=== PATIENT | female | born 1950 | race Two or more races ===

== ENCOUNTER 2018-10-12 15:26 | Inpatient (IN) | payer OTHER ==
[~2018-10-12] VITALS: Ht 157.5 cm; Wt 64.2 kg
[2018-10-12 15:48] VITALS: BP 153/74
[2018-10-12] MEDS ORDERED: DONE10TA8 PO (16:40)
[2018-10-12] MEDS ORDERED: RISP.5 PO (16:40)
[2018-10-12] MEDS ORDERED: MEMA10TA11 PO (16:41)
[2018-10-12] MEDS ORDERED: HYD50 PO (16:42)
[2018-10-12] MEDS ORDERED: CITA-106 PO (16:42)
[2018-10-12] MEDS ORDERED: ZOLPIDEM TARTRATE 10 MG TABLET PO PRN (16:45)
[2018-10-12 17:30] VITALS: BP 158/87
[2018-10-12] MEDS: RisperiDONE 0.5 MG TABLET PO SCH (17:49)
[2018-10-12 18:40] LABS: GLUCOMETER DEV NAME(LOC) BV2S.; GLUCOSE,POINT OF CARE 139 MG/DL (70-110)
[2018-10-12] MEDS ORDERED: GuaiFENesin/D-METHORPHAN [SUGAR-FREE] 200-20MG/10 ML SYRUP UDCUP PO PRN (18:45)
[2018-10-12] MEDS ORDERED: NICOTINE 14 MG/24 HOUR PATCH TD PRN (18:45)
[2018-10-12] MEDS ORDERED: ALBUTEROL SULFATE HFA 90 MCG/PUFF 8 GM INHALER IH PRN (18:45)
[2018-10-12] MEDS ORDERED: PETROLATUM,WHITE 28 GM JELLY TP PRN (18:45)
[2018-10-12] MEDS ORDERED: DOCUSATE SODIUM 100 MG CAPSULE PO PRN (18:45)
[2018-10-12] MEDS ORDERED: CloNIDine HCL 0.1 MG TABLET PO PRN (18:45)
[2018-10-12] MEDS ORDERED: IBUPROFEN 400 MG TABLET PO PRN (18:45)
[2018-10-12] MEDS ORDERED: MAG HYDROX/AL HYDROX/SIMETH ES 30 ML SUSPENSION UDCUP PO PRN (18:45)
[2018-10-12] MEDS ORDERED: MAGNESIUM HYDROXIDE SUSPENSION 30 ML UDCUP PO PRN (18:45)
[2018-10-12] MEDS ORDERED: LOPERAMIDE HCL 2 MG CAPSULE PO PRN (18:45)
[2018-10-12] MEDS ORDERED: ACETAMINOPHEN 325 MG TABLET PO PRN (18:45)
[2018-10-12] MEDS ORDERED: ONDANSETRON HCL 4 MG TABLET PO PRN (18:45)
[2018-10-12] MEDS: AmLODIPine BESYLATE 5 MG TABLET PO SCH (19:27)
[2018-10-12 20:43] VITALS: BP 142/72
[2018-10-12] MEDS ORDERED: DONEPEZIL HCL 10 MG TABLET PO SCH (21:00)
[2018-10-12] MEDS: MEMANTINE HCL 10 MG TABLET PO SCH (21:47)
[2018-10-12] MEDS: DONEPEZIL HCL 10 MG TABLET PO SCH (21:47)
[2018-10-12] MEDS ORDERED: PNEUMOCOCCAL VACCINE POLYVALENT 0.5 ML VIAL [PPSV23] IM ONE (23:30)
[2018-10-13 00:18] VITALS: BP 137/81
[2018-10-13] MEDS: CITALOPRAM HYDROBROMIDE 20 MG TABLET PO SCH (08:06)
[2018-10-13] MEDS: MEMANTINE HCL 10 MG TABLET PO SCH ×2 (08:06→16:24)
[2018-10-13] MEDS: AmLODIPine BESYLATE 5 MG TABLET PO SCH (08:06)
[2018-10-13 08:18] VITALS: BP 132/64
[2018-10-13 08:32] LABS: BASOPHILS % (AUTO) 0.9 % (0.0-2.0); EOSINOPHILS % (AUTO) 1.9 % (1.0-6.0); HEMATOCRIT 41.5 % (36-46); HEMOGLOBIN 13.7 g/dL (12.0-16.0); LYMPHOCYTES # (AUTO) 4.5 K/uL (1.0-4.8); MEAN CORPUSCULAR HEMOGLOBIN 31.7 pg (26.0-34.0); MEAN CORPUSCULAR HGB CONC 33.1 G/dL (31.0-37.0); MEAN CORPUSCULAR VOLUME 96 fL (80-100); MONOCYTES # (AUTO) 0.7 K/uL (0.1-1.0); MONOCYTES % (AUTO) 5.6 % (2.0-9.0); NEUTROPHILS # (AUTO) 7.3 K/uL (1.8-7.7); NEUTROPHILS % (AUTO) 56.6 % (40.0-70.0); PLATELET COUNT (AUTO) 313 K/uL (150-450); RED BLOOD CELL COUNT(AUTO) 4.32 MIL/uL (4.00-5.20); RED CELL DISTRIBUTION WIDTH 14.1 % (11.5-14.5)
[2018-10-13 08:53] LABS: HEMOGLOBIN A1C 5.5 % (4.5-6.2)
[2018-10-13] MEDS ORDERED: MEMANTINE HCL 10 MG TABLET PO SCH (09:00)
[2018-10-13 09:10] LABS: ALANINE AMINOTRANSFERASE 22 U/L (12-78); ALBUMIN 3.7 g/dL (3.4-5.0); ALKALINE PHOSPHATASE 112 U/L (46-116); ASPARTATE AMINOTRANSFERASE 20 U/L (15-37); BILIRUBIN,TOTAL 0.5 mg/dL (0.1-1.0); CALCIUM, TOTAL 8.7 mg/dL (8.8-10.5); CARBON DIOXIDE 27 mmol/L (22-29); CHLORIDE 103 mmol/L (98-107); CHOL/HDL RATIO 3.4 (3.9-5.7); CHOLESTEROL 220 mg/dL (131-200); FREE T4 (FREE THYROXINE) 0.96 ng/dL (0.76-1.46); GLOMERULAR FILTR. RATE CALC > 60 mL/min (>60); GLUCOSE,RANDOM 75 mg/dL (70-110); HDL CHOLESTEROL 64 mg/dL (40-60); LDL CHOL (CALC.) 144 mg/dL (0-130); TOTAL PROTEIN, SERUM 7.8 g/dL (6.4-8.2); TRIGLYCERIDES 59 mg/dL (15-150); UREA NITROGEN, BLOOD 10 mg/dL (7-18)
[2018-10-13 09:33] LABS: ANION GAP 11 mmol/L (8-16); SODIUM SERUM 141 mmol/L (136-145)
[2018-10-13 16:12] VITALS: BP 119/71
[2018-10-13] MEDS: RisperiDONE 0.5 MG TABLET PO SCH (16:24)
[2018-10-13] MEDS: DONEPEZIL HCL 10 MG TABLET PO SCH (20:11)
[2018-10-14 04:50] VITALS: BP 128/79
[2018-10-14] MEDS: CITALOPRAM HYDROBROMIDE 20 MG TABLET PO SCH (08:18)
[2018-10-14] MEDS: MEMANTINE HCL 10 MG TABLET PO SCH ×2 (08:18→16:07)
[2018-10-14] MEDS: AmLODIPine BESYLATE 5 MG TABLET PO SCH (08:18)
[2018-10-14 08:45] VITALS: BP 141/73
[2018-10-14] MEDS: RisperiDONE 0.5 MG TABLET PO SCH (16:07)
[2018-10-14 16:17] VITALS: BP 136/62
[2018-10-14] MEDS: DONEPEZIL HCL 10 MG TABLET PO SCH (20:19)
[2018-10-15 06:39] VITALS: BP_SYST 123
[2018-10-15 07:53] LABS: AMPHET/METH SCREEN,URINE NEGATIVE (NEGATIVE); BARBITURATE SCREEN, URINE NEGATIVE (NEGATIVE); BENZODIAZEPINES SCREEN,URINE NEGATIVE (NEGATIVE); CANNABINOID SCREEN,URINE NEGATIVE (NEGATIVE); COCAINE SCREEN,URINE NEGATIVE (NEGATIVE); METHADONE SCREEN, URINE NEGATIVE (NEGATIVE); OPIATE SCREEN,URINE NEGATIVE (NEGATIVE)
[2018-10-15 07:54] LABS: PHENCYCLIDINE SCREEN,URINE NEGATIVE (NEGATIVE)
[2018-10-15 08:17] LABS: APPEARANCE,URINE TURBID (CLEAR); BILIRUBIN,URINE NEGATIVE (NEGATIVE); GLUCOSE, URINE (UA) NEGATIVE (NEGATIVE); KETONES,URINE TRACE mg/dL (NEGATIVE); NITRATE,URINE NEGATIVE (NEGATIVE); PROTEIN,URINE NEGATIVE (NEGATIVE); UROBILINOGEN,URINE 0.2 mg/dL (<=1.0)
[2018-10-15 08:33] VITALS: BP 128/65
[2018-10-15] MEDS: MEMANTINE HCL 10 MG TABLET PO SCH ×2 (08:33→16:16)
[2018-10-15] MEDS: AmLODIPine BESYLATE 5 MG TABLET PO SCH (08:33)
[2018-10-15] MEDS: CITALOPRAM HYDROBROMIDE 20 MG TABLET PO SCH (08:33)
[2018-10-15 08:38] LABS: BACTERIA,URINE None Seen /HPF (None Seen); LEUKOCYTE ESTERASE ,URINE TRACE (NEGATIVE); OCCULT BLOOD,URINE TRACE (NEGATIVE); RBC,URINE 0-2 /HPF (0-2); SQUAMOUS EPITHELIAL CELL,UR Few /LPF (None Seen); WBC,URINE 0-2 /HPF (0-5)
[2018-10-15 08:39] LABS: AMORPHOUS SEDIMENT,UR Many /LPF (None Seen); CALCIUM OXALATE CRYSTALS,UR Moderate /LPF (None Seen)
[2018-10-15] MEDS: RisperiDONE 0.5 MG TABLET PO SCH (16:16)
[2018-10-15 16:21] VITALS: BP 139/63
[2018-10-15] MEDS: DONEPEZIL HCL 10 MG TABLET PO SCH (20:18)
[2018-10-16 05:45] VITALS: BP 138/77
[2018-10-16 08:05] LABS: BASOPHILS % (AUTO) 1.2 % (0.0-2.0); HEMATOCRIT 37.7 % (36-46); HEMOGLOBIN 12.3 g/dL (12.0-16.0); LYMPHOCYTES # (AUTO) 4.9 K/uL (1.0-4.8); LYMPHOCYTES % (AUTO) 43.1 % (22.0-44.0); MEAN CORPUSCULAR HEMOGLOBIN 31.4 pg (26.0-34.0); MEAN CORPUSCULAR HGB CONC 32.6 G/dL (31.0-37.0); MEAN CORPUSCULAR VOLUME 96 fL (80-100); MONOCYTES # (AUTO) 0.5 K/uL (0.1-1.0); MONOCYTES % (AUTO) 4.3 % (2.0-9.0); NEUTROPHILS # (AUTO) 5.6 K/uL (1.8-7.7); NEUTROPHILS % (AUTO) 49.4 % (40.0-70.0); PLATELET COUNT (AUTO) 309 K/uL (150-450); RED BLOOD CELL COUNT(AUTO) 3.92 MIL/uL (4.00-5.20); RED CELL DISTRIBUTION WIDTH 14.1 % (11.5-14.5)
[2018-10-16 08:30] VITALS: BP 121/72
[2018-10-16] MEDS: CITALOPRAM HYDROBROMIDE 20 MG TABLET PO SCH (08:50)
[2018-10-16] MEDS: MEMANTINE HCL 10 MG TABLET PO SCH ×2 (08:50→16:40)
[2018-10-16] MEDS: AmLODIPine BESYLATE 5 MG TABLET PO SCH (08:51)
[2018-10-16] MEDS: RisperiDONE 0.5 MG TABLET PO SCH (16:40)
[2018-10-16 16:45] VITALS: BP 129/68
[2018-10-16] MEDS: DONEPEZIL HCL 10 MG TABLET PO SCH (20:48)
[2018-10-17 01:12] VITALS: BP 123/74
[2018-10-17] MEDS: MEMANTINE HCL 10 MG TABLET PO SCH ×2 (09:05→16:39)
[2018-10-17] MEDS: CITALOPRAM HYDROBROMIDE 20 MG TABLET PO SCH (09:05)
[2018-10-17] MEDS: AmLODIPine BESYLATE 5 MG TABLET PO SCH (09:06)
[2018-10-17 09:08] VITALS: BP 109/65
[2018-10-17 16:36] VITALS: BP 140/69
[2018-10-17] MEDS: RisperiDONE 0.5 MG TABLET PO SCH (16:39)
[2018-10-17] MEDS: DONEPEZIL HCL 10 MG TABLET PO SCH (21:00)
[2018-10-18 05:25] VITALS: BP 121/75
[2018-10-18] MEDS ORDERED: AMLO5TAB9 PO (08:32)
[2018-10-18] MEDS: MEMANTINE HCL 10 MG TABLET PO SCH (08:36)
[2018-10-18] MEDS: CITALOPRAM HYDROBROMIDE 20 MG TABLET PO SCH (08:36)
[2018-10-18] MEDS: AmLODIPine BESYLATE 5 MG TABLET PO SCH (08:36)
[2018-10-18 08:44] LABS: BASOPHILS % (AUTO) 1.2 % (0.0-2.0); EOSINOPHILS % (AUTO) 2.1 % (1.0-6.0); HEMATOCRIT 38.8 % (36-46); HEMOGLOBIN 12.8 g/dL (12.0-16.0); LYMPHOCYTES # (AUTO) 2.9 K/uL (1.0-4.8); LYMPHOCYTES % (AUTO) 31.3 % (22.0-44.0); MEAN CORPUSCULAR HEMOGLOBIN 31.8 pg (26.0-34.0); MEAN CORPUSCULAR VOLUME 96 fL (80-100); MONOCYTES # (AUTO) 0.4 K/uL (0.1-1.0); MONOCYTES % (AUTO) 4.6 % (2.0-9.0); NEUTROPHILS # (AUTO) 5.6 K/uL (1.8-7.7); NEUTROPHILS % (AUTO) 60.8 % (40.0-70.0); PLATELET COUNT (AUTO) 310 K/uL (150-450); RED BLOOD CELL COUNT(AUTO) 4.04 MIL/uL (4.00-5.20); RED CELL DISTRIBUTION WIDTH 14.4 % (11.5-14.5)
[2018-10-18 08:45] VITALS: BP 110/63
== END 2018-10-18 13:40 | disposition home or self-care (01) | DRG 885 ==
LOC: B2S 16:54
PROVIDERS: ADMIT Psychiatry & Neurology Psychiatry; ATTEND Psychiatry & Neurology Psychiatry
DX: F25.9 Schizoaffective disorder, unspecified (principal); D72.829 Elevated white blood cell count, unspecified; E78.5 Hyperlipidemia, unspecified; F03.90 Unspecified dementia, unspecified severity, without behavioral disturbance, psychotic disturbance, mood disturbance, and anxiety; F32.9 Major depressive disorder, single episode, unspecified; Z79.899 Other long term (current) drug therapy
CPT/HCPCS: 80307; 83036; 84439; 87081